=== PATIENT | female | born 1965 | race Caucasian/White ===

== ENCOUNTER 2022-11-04 10:50 | Outpatient (OUT) | payer BC, SELFPAY ==
--- NOTE | 2022-11-04 11:12 | XR_ITS ---
The [address] [address] Patient Name: DAIANA HENRY MRN: [id number] date: 1965 Sex: F Assigned Patient Location: [facility] Current Patient Location: [facility] Accession/Order Number: [id number] Exam Date: 11/04/2022 11:12 Report Date: 11/04/2022 13:01 At the request of: FRANCISCO KAUR Procedure: XR foot LT min 3V PROCEDURE: XR foot LT min 3V HISTORY: LEFT FOOT PAIN ; chronic first metatarsal pain COMPARISON: None. FINDINGS: BONES:Articular surface irregularity and moderate marked narrowing of the first metatarsophalangeal joint, along with small periarticular degenerative osteophytes. No fracture or dislocation. SOFT TISSUES:No visible soft tissue swelling. EFFUSION:None visible. OTHER: Negative. XR/XR foot LT min 3V IMPRESSION: 1. Moderate marked degenerative changes of the first metatarsophalangeal joint; nonspecific but favoring osteoarthritis. Electronically authenticated by: RENETTA MANN Date: 11/04/2022 13:01
== END 2022-11-04 10:51 | disposition home or self-care (01) ==
LOC: RAD 10:50
PROVIDERS: Visit Provider Podiatrist Foot & Ankle Surgery
DX: M79.672 Pain in left foot (principal)
CPT/HCPCS: 73630